=== PATIENT | male | born 1980 | race American Indian/Alaskan Native ===

== ENCOUNTER 2018-10-02 08:48 | Emergency (ER) | payer MEDICARE, MEDICAID ==
[~2018-10-02] VITALS: Ht 175.3 cm; Wt 97.5 kg
[~2018-10-02 08:48] MED LIST: SERAQUIL; TRAZADONE
[2018-10-02 08:55] VITALS: BP 128/82
== END 2018-10-02 10:05 | disposition home or self-care (01) ==
LOC: ER 08:48
DX: S80.02XA Contusion of left knee, initial encounter (principal); W18.39XA Other fall on same level, initial encounter; Y93.89 Activity, other specified; Y99.8 Other external cause status; Y92.39 Other specified sports and athletic area as the place of occurrence of the external cause
CPT/HCPCS: 73562